=== PATIENT | female | born 1940 | race Caucasian/White ===

== ENCOUNTER → 2016-08-16 | Outpatient (CLI) | payer MEDICARE, OTHER | END | disposition home or self-care (01) | LOC: CVU 15:12 | PROVIDERS: ATTEND Internal Medicine Cardiovascular Disease | DX: I11.0 Hypertensive heart disease with heart failure (principal); I50.9 Heart failure, unspecified; I51.7 Cardiomegaly; I34.0 Nonrheumatic mitral (valve) insufficiency; I37.1 Nonrheumatic pulmonary valve insufficiency; E11.9 Type 2 diabetes mellitus without complications | CPT/HCPCS: 93306 ==

== ENCOUNTER → 2016-08-22 | Outpatient (CLI) | payer MEDICARE, OTHER | END | disposition home or self-care (01) | LOC: CFH 12:29 | PROVIDERS: ATTEND Internal Medicine Cardiovascular Disease | DX: I11.0 Hypertensive heart disease with heart failure (principal); I50.9 Heart failure, unspecified; E11.9 Type 2 diabetes mellitus without complications | CPT/HCPCS: 78452; 93017; A9502; J2785 ==

== ENCOUNTER → 2017-05-31 | Outpatient (CLI) | payer MEDICARE, OTHER | END | disposition home or self-care (01) | LOC: CFH 08:54 | PROVIDERS: ATTEND Nurse Practitioner Family | DX: Z12.31 Encounter for screening mammogram for malignant neoplasm of breast (principal); M85.9 Disorder of bone density and structure, unspecified | CPT/HCPCS: 77067 ==

== ENCOUNTER → 2017-07-03 | Outpatient (CLI) | payer MEDICARE, OTHER | LOC: CFH 10:21 | PROVIDERS: ATTEND Nurse Practitioner Family | DX: M81.0 Age-related osteoporosis without current pathological fracture (principal); M89.9 Disorder of bone, unspecified; Z78.0 Asymptomatic menopausal state | CPT/HCPCS: 77080 ==

== ENCOUNTER → 2017-10-30 | Outpatient (CLI) | payer MEDICARE, OTHER | END | disposition home or self-care (01) | LOC: CFH 14:52 | PROVIDERS: ATTEND Internal Medicine | DX: K80.20 Calculus of gallbladder without cholecystitis without obstruction (principal); K57.30 Diverticulosis of large intestine without perforation or abscess without bleeding; K44.9 Diaphragmatic hernia without obstruction or gangrene; M51.36 Other intervertebral disc degeneration, lumbar region; M47.896 Other spondylosis, lumbar region; K59.00 Constipation, unspecified; I11.0 Hypertensive heart disease with heart failure; I50.9 Heart failure, unspecified; E11.9 Type 2 diabetes mellitus without complications | CPT/HCPCS: 74176 ==

== ENCOUNTER 2017-11-06 10:01 | Observation (INO) | payer MEDICARE, OTHER ==
[~2017-11-06] VITALS: Ht 157.5 cm; Wt 67.3 kg
[2017-11-06] MEDS ORDERED: SODIUM CHLORIDE 0.9% 1,000 ML IV ONE (10:25)
[2017-11-06] MEDS ORDERED: SODIUM CHLORIDE FLUSH 10ML SYR IVF ONE (10:30)
[2017-11-06] MEDS ORDERED: SODIUM CHLORIDE 0.9% 1,000ML IVBOLUS ONE (10:30)
[2017-11-06 11:02] LABS: BASOPHILS # (AUTO) 0.07 x10^3/uL (0-0.1); BASOPHILS % (AUTO) 1 % (0-1); EOSINOPHILS # (AUTO) 0.97 x10^3/uL (0-0.4); EOSINOPHILS % (AUTO) 11 % (1-7); LYMPHOCYTES # (AUTO) 1.31 x10^3/uL (1-3.4); LYMPHOCYTES % (AUTO) 15 % (22-44); MD NO; MEAN CORPUSCULAR HEMOGLOBIN 30.8 pg (27.0-34.8); MEAN CORPUSCULAR HGB CONC 35.1 g/dL (32.4-35.8); MEAN CORPUSCULAR VOLUME 87.9 fL (80-100); MEAN PLATELET VOLUME 8.8 fL (7.4-10.4); MONOCYTES # (AUTO) 0.36 x10^3/uL (0.2-0.8); MONOCYTES % (AUTO) 4 % (2-9); NEUTROPHILS # (AUTO) 5.88 x10^3/uL (1.8-6.8); NEUTROPHILS % (AUTO) 69 % (42-75); PLATELET COUNT 244 x10^3/uL (130-400); RED CELL DISTRIBUTION WIDTH 12.9 % (9.6-15.2)
[2017-11-06 11:08] LABS: ALBUMIN 3.8 g/dL (3.4-5.0); ANION GAP 7 mmol/L (5-15); CALCIUM 8.8 mg/dL (8.5-10.1); CHLORIDE 106 mmol/L (98-107); CREATININE 2.15 mg/dL (0.55-1.02)
[2017-11-06 11:11] LABS: ALKALINE PHOSPHATASE 66 U/L (45-117); BILIRUBIN,TOTAL 0.6 mg/dL (0.2-1.0); TOTAL PROTEIN 8.1 g/dL (6.4-8.2)
[2017-11-06 11:13] LABS: ACETONE, SERUM Negative (Negative)
[2017-11-06 11:34] LABS: ALANINE AMINOTRANSFERASE 22 U/L (12-78); INTERNATIONAL NORMALIZED RATIO 1.11 (0.93-1.1); PROTHROMBIN TIME 11.4 Seconds (9.6-11.5)
[2017-11-06 12:22] LABS: MICROSCOPIC AUTO
[2017-11-06 12:33] LABS: CULTURE INDICATED? NO
[2017-11-06] MEDS ORDERED: ACETAMINOPHEN 325 MG TABLET PO PRN (14:30)
[2017-11-06] MEDS ORDERED: ONDANSETRON 2MG/ML, 2ML IVPush PRN (14:30)
[2017-11-06] MEDS: HEPARIN 5,000 UNITS/ML, 1ML SQ SCH ×2 (14:30→20:52)
[2017-11-06] MEDS ORDERED: POLYETHYLENE GLYCOL 17 GM PACKET PO PRN (14:30)
[2017-11-06] MEDS ORDERED: BISACODYL 10 MG SUPP PR PRN (14:30)
[2017-11-06] MEDS ORDERED: DOCUSATE 100 MG CAPSULE PO PRN (14:30)
[2017-11-06] MEDS ORDERED: LABETALOL 5MG/ML, 20ML IVPush PRN (14:30)
[2017-11-06 15:11] VITALS: BP 159/74
[2017-11-06] MEDS: SODIUM CHLORIDE 0.9% 1,000 ML IV SCH (15:14)
[2017-11-06 15:27] VITALS: BP 159/74
[2017-11-06 19:01] VITALS: BP 172/78
[2017-11-06 22:44] VITALS: BP 149/74
[2017-11-07] MEDS: SODIUM CHLORIDE 0.9% 1,000 ML IV SCH (00:16)
[2017-11-07 00:32] VITALS: BP 144/75
[2017-11-07] MEDS: HEPARIN 5,000 UNITS/ML, 1ML SQ SCH (05:28)
[2017-11-07 06:21] LABS: ALANINE AMINOTRANSFERASE 17 U/L (12-78); ALBUMIN 3.2 g/dL (3.4-5.0); ANION GAP 8 mmol/L (5-15); CALCIUM 8.6 mg/dL (8.5-10.1); CHLORIDE 112 mmol/L (98-107); CREATININE 1.61 mg/dL (0.55-1.02)
[2017-11-07 06:23] LABS: ALKALINE PHOSPHATASE 54 U/L (45-117); BILIRUBIN,TOTAL 0.6 mg/dL (0.2-1.0); TOTAL PROTEIN 7.1 g/dL (6.4-8.2)
[2017-11-07 06:39] LABS: HEMOGLOBIN A1C 8.7 % (4.2-6.3)
[2017-11-07 08:03] VITALS: BP 163/75
== END 2017-11-07 10:47 | disposition home or self-care (01) ==
LOC: ED 13:47 → 3NE 14:04 → DCLOUNGE 11-07 10:28
PROVIDERS: ADMIT Internal Medicine; ATTEND Internal Medicine
DX: N17.0 Acute kidney failure with tubular necrosis (principal); E11.65 Type 2 diabetes mellitus with hyperglycemia; I11.9 Hypertensive heart disease without heart failure; K44.9 Diaphragmatic hernia without obstruction or gangrene; K57.90 Diverticulosis of intestine, part unspecified, without perforation or abscess without bleeding; K80.20 Calculus of gallbladder without cholecystitis without obstruction; K85.00 Idiopathic acute pancreatitis without necrosis or infection; M47.9 Spondylosis, unspecified; Z79.4 Long term (current) use of insulin; Z83.3 Family history of diabetes mellitus
CPT/HCPCS: 36415; 71045; 80053; 81001; 82010; 82140; 83036; 83690; 85025; 85610; 85730; 93005; 96360; 96361; 99285; G0378; J7030

== ENCOUNTER 2018-05-24 17:07 | Emergency (ER) | payer MEDICARE, OTHER ==
[~2018-05-24] VITALS: Ht 152.4 cm; Wt 65.5 kg
[2018-05-24 17:21] VITALS: BP 131/46
[2018-05-24] MEDS ORDERED: ASPI325T17 PO (17:33)
[2018-05-24] MEDS ORDERED: CHOL500050 PO (17:33)
[2018-05-24] MEDS ORDERED: VALS40TA2 PO (17:33)
[2018-05-24] MEDS ORDERED: INSU100I13 SQ-INSULIN (17:34)
[2018-05-24 18:48] LABS: BASOPHILS # (AUTO) 0.08 x10^3/uL (0-0.1); BASOPHILS % (AUTO) 1 % (0-1); EOSINOPHILS # (AUTO) 0.41 x10^3/uL (0-0.4); EOSINOPHILS % (AUTO) 6 % (1-7); LYMPHOCYTES # (AUTO) 1.51 x10^3/uL (1-3.4); LYMPHOCYTES % (AUTO) 21 % (22-44); MD NO; MEAN CORPUSCULAR HEMOGLOBIN 29.3 pg (27.0-34.8); MEAN CORPUSCULAR HGB CONC 33.4 g/dL (32.4-35.8); MEAN CORPUSCULAR VOLUME 87.5 fL (80-100); MEAN PLATELET VOLUME 7.8 fL (7.4-10.4); MONOCYTES # (AUTO) 0.35 x10^3/uL (0.2-0.8); MONOCYTES % (AUTO) 5 % (2-9); NEUTROPHILS # (AUTO) 4.95 x10^3/uL (1.8-6.8); NEUTROPHILS % (AUTO) 68 % (42-75); PLATELET COUNT 302 x10^3/uL (130-400); RED BLOOD COUNT 3.52 x10^6/uL (3.82-5.3); RED CELL DISTRIBUTION WIDTH 16.1 % (9.6-15.2)
[2018-05-24 18:58] LABS: ALBUMIN 2.7 g/dL (3.4-5.0); ANION GAP 6 mmol/L (5-15); CHLORIDE 101 mmol/L (98-107)
--- NOTE | 2018-05-24 19:48 | NUR ---
TRIAGE NOTE REVIEWED, ASSUME CARE OF PT AT THIS TIME. AWAITING RECHECK BY ERP.
--- NOTE | 2018-05-24 20:06 | NUR ---
PT NOT IN ROOM, DISCHARGE PAPERWORK AT DESK.
== END 2018-05-24 20:22 | disposition home or self-care (01) ==
LOC: ED 18:26
DX: T82.41XA Breakdown (mechanical) of vascular dialysis catheter, initial encounter (principal); E11.22 Type 2 diabetes mellitus with diabetic chronic kidney disease; I12.0 Hypertensive chronic kidney disease with stage 5 chronic kidney disease or end stage renal disease; N18.6 End stage renal disease; Z99.2 Dependence on renal dialysis
CPT/HCPCS: 36415; 80048; 82040; 85025; 99283

== ENCOUNTER 2019-02-03 18:52 | Inpatient (IN) | payer MEDICARE, OTHER ==
[~2019-02-03] VITALS: Ht 152.4 cm; Wt 71.8 kg
[~2019-02-03 18:52] MED LIST: ASPI325T17 PO; CHOL500050 PO; INSU100I13 SQ-INSULIN; VALS40TA2 PO
--- NOTE | 2019-02-03 19:12 | NUR ---
PT BIB EMS FROM DIALYSIS, PER EMS PT LOST ABOUT 300ML OF BLOOD, REPLACED WITH SALINE. SYS BP 120'S-80'S W/ SYNCOPE. UPON ARRIVAL PT A/O X'S 4, SPEAKING IN FULL SENTENCES. PT CONNECTED TO ALL MONITORING AT THIS TIME. SIGNIFICANT OTHER AT BEDSIDE. NO FURTHER NEEDS EXPRESSED AT THIS TIME. CALL LIGHT WITHIN REACH
--- NOTE | 2019-02-03 19:35 | NUR ---
LAB AT BEDSIDE FOR CULTURES
[2019-02-03 19:46] LABS: BASOPHILS # (AUTO) 0.05 x10^3/uL (0-0.1); BASOPHILS % (AUTO) 1 % (0-1); EOSINOPHILS # (AUTO) 0.21 x10^3/uL (0-0.4); EOSINOPHILS % (AUTO) 3 % (1-7); LYMPHOCYTES # (AUTO) 0.98 x10^3/uL (1-3.4); LYMPHOCYTES % (AUTO) 12 % (22-44); MD NO; MEAN CORPUSCULAR HGB CONC 33.9 g/dL (32.4-35.8); MEAN CORPUSCULAR VOLUME 91.2 fL (80-100); MEAN PLATELET VOLUME 7.4 fL (7.4-10.4); MONOCYTES # (AUTO) 0.45 x10^3/uL (0.2-0.8); MONOCYTES % (AUTO) 6 % (2-9); NEUTROPHILS # (AUTO) 6.32 x10^3/uL (1.8-6.8); NEUTROPHILS % (AUTO) 79 % (42-75); PLATELET COUNT 236 x10^3/uL (130-400); RED BLOOD COUNT 3.38 x10^6/uL (3.82-5.3); RED CELL DISTRIBUTION WIDTH 12.9 % (9.6-15.2)
[2019-02-03 19:57] LABS: ALBUMIN 2.8 g/dL (3.4-5.0); ANION GAP 5 mmol/L (5-15); CHLORIDE 105 mmol/L (98-107); CREATININE 2.21 mg/dL (0.55-1.02)
--- NOTE | 2019-02-03 19:57 | NUR ---
PT UP TO RESTROOM WITH STEADY GAIT. SIGNIFICANT OTHER REMAINS AT BEDSIDE.
--- NOTE | 2019-02-03 19:59 | NUR ---
IV STARTED, PT RESTING ON [email or web address] CALL LIGHT WITHIN REACH NADN
[2019-02-03 20:01] LABS: TROPONIN I < 0.015 ng/mL (0.000-0.045)
--- NOTE | 2019-02-03 20:49 | NUR ---
PT TO CT AT THIS TIME
--- NOTE | 2019-02-03 20:57 | NUR ---
Dk galindo in [facility] - 02/03/19 at 2057 by [facility] UP TO THE [employer] PHONE.
--- NOTE | 2019-02-03 21:26 | NUR ---
AT BEDSIDE TO DISCUSS POC WITH PT AND FAMILY. PT TO BE ADMITTED
--- NOTE | 2019-02-03 21:36 | NUR ---
PT RESTING ON GURNEY, LIGHTS DIMMED. PT EXPRESSES NO FURTHER NEEDS AT THIS TIME. NADN, VSS
--- NOTE | 2019-02-03 22:31 | NUR ---
REPORT CALLED ANDREE[facility]TERFIELD ALL QUESTIONS ADDRESSED PT READY FOR TRANSPORT
[2019-02-03 23:39] VITALS: BP 170/59
[2019-02-04] MEDS ORDERED: hydrALAzine 20 MG/ML, 1ML IVPush PRN (00:30)
[2019-02-04] MEDS ORDERED: ONDANSETRON ODT 4 MG PO PRN (00:30)
[2019-02-04] MEDS ORDERED: LIDODERM 5% PATCH TD PRN (00:30)
[2019-02-04] MEDS ORDERED: DOCUSATE 100 MG CAPSULE PO PRN (00:30)
[2019-02-04] MEDS ORDERED: TEMAZEPAM 15 MG CAPSULE PO PRN (00:30)
[2019-02-04] MEDS ORDERED: ACETAMINOPHEN 325 MG TABLET PO PRN ×2 (00:30→13:30)
[2019-02-04 02:44] VITALS: BP 151/55
[2019-02-04] MEDS: HEPARIN 5,000 UNITS/ML, 1ML SQ SCH ×3 (02:46→21:00)
[2019-02-04 02:50] VITALS: BP_SYST 127; BP_SYST 147; BP_SYST 155; BP_DIAS 53; BP_DIAS 54; BP_DIAS 63
[2019-02-04] MEDS ORDERED: POTASSIUM CHLORIDE 20 MEQ PACKET PO ONE (04:00)
[2019-02-04 06:15] VITALS: BP 148/62
[2019-02-04] MEDS: INSULIN LISPRO 100 UNITS/ML, PEN SQ-INSULIN SCH ×4 (07:00→20:20)
[2019-02-04 08:34] LABS: CLOSTRIDIUM DIFFICILE ANTIGEN POSITIVE; CLOSTRIDIUM DIFFICILE TOXIN NEGATIVE (Negative)
[2019-02-04] MEDS: VALSARTAN 80 MG TABLET PO SCH (10:09)
[2019-02-04] MEDS: INSULIN GLARGINE 100 UNITS/ML, PEN SQ-INSULIN SCH (10:10)
[2019-02-04 12:51] VITALS: BP 140/80
[2019-02-04] MEDS ORDERED: POTASSIUM CHLORIDE 20 MEQ TAB.ER.PRT PO ONE (13:30)
[2019-02-04] MEDS ORDERED: POTASSIUM CHLORIDE 20 MEQ TAB.ER.PRT ONE (13:56)
[2019-02-04 14:56] VITALS: BP 138/48
[2019-02-04] MEDS: VANCOMYCIN 50 MG/ML ORAL SUSP PO SCH ×4 (15:00→20:20)
[2019-02-04 16:58] LABS: HEMOGLOBIN A1C 6.2 % (4.2-6.3)
[2019-02-05] MEDS: VANCOMYCIN 50 MG/ML ORAL SUSP PO SCH ×2 (02:42→09:00)
[2019-02-05] MEDS: HEPARIN 5,000 UNITS/ML, 1ML SQ SCH ×2 (05:25→14:00)
[2019-02-05 06:01] LABS: BASOPHILS # (AUTO) 0.05 x10^3/uL (0-0.1); BASOPHILS % (AUTO) 1 % (0-1); EOSINOPHILS % (AUTO) 4 % (1-7); LYMPHOCYTES # (AUTO) 1.06 x10^3/uL (1-3.4); LYMPHOCYTES % (AUTO) 19 % (22-44); MD NO; MEAN CORPUSCULAR HEMOGLOBIN 30.5 pg (27.0-34.8); MEAN CORPUSCULAR HGB CONC 33.4 g/dL (32.4-35.8); MEAN CORPUSCULAR VOLUME 91.4 fL (80-100); MEAN PLATELET VOLUME 7.6 fL (7.4-10.4); MONOCYTES # (AUTO) 0.33 x10^3/uL (0.2-0.8); MONOCYTES % (AUTO) 6 % (2-9); NEUTROPHILS # (AUTO) 3.89 x10^3/uL (1.8-6.8); NEUTROPHILS % (AUTO) 70 % (42-75); PLATELET COUNT 218 x10^3/uL (130-400); RED BLOOD COUNT 3.28 x10^6/uL (3.82-5.3); RED CELL DISTRIBUTION WIDTH 13.1 % (9.6-15.2)
[2019-02-05 06:09] LABS: ANION GAP 8 mmol/L (5-15); CALCIUM 8.5 mg/dL (8.5-10.1); CHLORIDE 111 mmol/L (98-107)
[2019-02-05 06:11] LABS: CREATININE 3.49 mg/dL (0.55-1.02)
[2019-02-05] MEDS: INSULIN LISPRO 100 UNITS/ML, PEN SQ-INSULIN SCH ×2 (07:00→11:00)
[2019-02-05 07:45] VITALS: BP 135/78
[2019-02-05] MEDS: INSULIN GLARGINE 100 UNITS/ML, PEN SQ-INSULIN SCH (10:27)
[2019-02-05] MEDS: VALSARTAN 80 MG TABLET PO SCH (10:27)
[2019-02-05] MEDS ORDERED: ACID1TAB7 PO (13:16)
[2019-02-05 13:33] VITALS: BP 152/76
== END 2019-02-05 14:46 | disposition home or self-care (01) | DRG 312 ==
LOC: ED 21:42 → CCU 22:45 → 4WST 02-04 06:01
PROVIDERS: ADMIT Internal Medicine; ATTEND Internal Medicine
DX: I95.1 Orthostatic hypotension (principal); N18.6 End stage renal disease; I47.2 Ventricular tachycardia; I12.0 Hypertensive chronic kidney disease with stage 5 chronic kidney disease or end stage renal disease; D63.1 Anemia in chronic kidney disease; E11.22 Type 2 diabetes mellitus with diabetic chronic kidney disease; E66.9 Obesity, unspecified; E87.6 Hypokalemia; G47.00 Insomnia, unspecified; M19.079 Primary osteoarthritis, unspecified ankle and foot; R60.9 Edema, unspecified; N25.0 Renal osteodystrophy; Z66 Do not resuscitate; Z83.3 Family history of diabetes mellitus; Z68.30 Body mass index [BMI] 30.0-30.9, adult; Z79.4 Long term (current) use of insulin; Z99.2 Dependence on renal dialysis; Z90.49 Acquired absence of other specified parts of digestive tract
CPT/HCPCS: 36415; 70450; 71045; 80048; 82040; 82962; 83036; 83605; 83735; 83880; 84484; 85025; 86140; 87040; 87081; 87324; 87493; 93005; 93880; C8929; G0378; J1644; J3370; Q9957; J1815